=== PATIENT | male | born 1960 | race Caucasian/White ===

== ENCOUNTER 2017-10-12 12:04 | Inpatient (IN) | payer BC ==
[~2017-10-12] VITALS: Ht 180.3 cm; Wt 102.3 kg
[~2017-10-12 12:04] MED LIST: BACITRACIN 50,000 UNIT ONE; THROMBIN 5,000 UNIT VIAL TP ONE
[2017-10-12] MEDS ORDERED: HYDR-879 PO (13:28)
[2017-10-12] MEDS ORDERED: ASPI-496 PO (13:28)
[2017-10-12] MEDS ORDERED: TRAZ-136 PO (13:28)
[2017-10-12] MEDS ORDERED: DOCU-131 PO (13:28)
[2017-10-12] MEDS ORDERED: ATOR40TA78 PO (13:28)
[2017-10-12] MEDS ORDERED: SILD50TA PO (13:28)
[2017-10-12] MEDS ORDERED: LACTATED RINGERS 1,000 ML IV SCH (14:01)
[2017-10-12] MEDS ORDERED: SCOPOLAMINE PATCH, 1.5MG PATCH.TD72 TD ONE (14:30)
[2017-10-12] MEDS ORDERED: GABAPENTIN 300 MG CAPSULE PO ONE (14:30)
[2017-10-12] MEDS ORDERED: ACETAMINOPHEN 500 MG TABLET PO ONE (14:30)
[2017-10-12] MEDS ORDERED: HEPARIN 1,000 UNITS/ML, 30ML ONE (15:33)
[2017-10-12] MEDS ORDERED: FENTANYL PF 250 MCG/5ML ONE (15:45)
[2017-10-12] MEDS ORDERED: MIDAZOLAM 1 MG/ML, 2ML ONE (15:45)
[2017-10-12] MEDS ORDERED: SUCCINYLCHOLINE 20 MG/ML, 10ML ONE (15:54)
[2017-10-12] MEDS ORDERED: ROCURONIUM 10 MG/ML,10ML ONE (15:54)
[2017-10-12] MEDS ORDERED: ONDANSETRON 2MG/ML, 2ML ONE (15:54)
[2017-10-12] MEDS ORDERED: NEOSTIGMINE 1 MG/ML, 10ML ONE (15:54)
[2017-10-12] MEDS ORDERED: PROPOFOL 10 MG/ML, 20ML ONE (15:54)
[2017-10-12] MEDS ORDERED: GLYCOPYRROLATE 0.2MG/1ML, 5ML ONE (15:54)
[2017-10-12] MEDS ORDERED: CEFAZOLIN 1,000 MG ONE (15:54)
[2017-10-12] MEDS ORDERED: DEXAMETHASONE 4 MG/ML, 1ML ONE (15:54)
[2017-10-12] MEDS ORDERED: MEPERIDINE/PF 25MG/0.5ML IVPush PRN (17:00)
[2017-10-12] MEDS ORDERED: PROMETHAZINE 25 MG/ML, 1ML IV PRN (17:00)
[2017-10-12] MEDS ORDERED: KETOROLAC 30 MG/1 ML IV PRN (17:00)
[2017-10-12] MEDS ORDERED: METOCLOPRAMIDE 5 MG/ML, 2ML IV PRN (17:00)
[2017-10-12] MEDS ORDERED: LABETALOL 5MG/ML, 20ML IV PRN (17:00)
[2017-10-12] MEDS ORDERED: OXYcodone 5 MG/5 ML ORAL.SOL UDC PO PRN (17:00)
[2017-10-12] MEDS ORDERED: ONDANSETRON 2MG/ML, 2ML IVPush PRN (17:00)
[2017-10-12] MEDS ORDERED: ALBUTEROL SULFATE 2.5 MG/3 ML NPPB PRN (17:00)
[2017-10-12] MEDS ORDERED: hydrALAzine 20 MG/ML, 1ML IV PRN (17:00)
[2017-10-12] MEDS ORDERED: MEPERIDINE/PF 25MG/0.5ML ONE (18:25)
[2017-10-12] MEDS ORDERED: CYCLOBENZAPRINE 10 MG TABLET PO PRN (18:30)
[2017-10-12] MEDS ORDERED: HYDROcodone/APAP 5/325 TABLET PO PRN (18:30)
[2017-10-12] MEDS ORDERED: BISACODYL 10 MG SUPP PR PRN (18:30)
[2017-10-12] MEDS ORDERED: PROMETHAZINE 25 MG/ML, 1ML IM PRN (18:30)
[2017-10-12] MEDS ORDERED: DIPHENHYDRAMINE 50 MG/ML, 1ML IVPush PRN (18:30)
[2017-10-12] MEDS ORDERED: OXYcodone/APAP 5/325MG TABLET PO PRN (18:30)
[2017-10-12] MEDS ORDERED: PHARMACY MAY ADJ FOR RENAL FX MC PRN (18:30)
[2017-10-12] MEDS ORDERED: MORPHINE SULFATE 4 MG/ML, 1ML ONE (18:34)
[2017-10-12] MEDS ORDERED: OXYcodone 5 MG/5 ML ORAL.SOL UDC ONE (18:37)
[2017-10-12] MEDS ORDERED: HYDROmorphone 2 MG/ML, 1ML ONE ×2 (18:37→19:32)
[2017-10-12] MEDS ORDERED: CYCLOBENZAPRINE 10 MG TABLET ONE (18:37)
[2017-10-12] MEDS: HYDROmorphone 1 MG/ML, 1ML IV PRN ×4 (18:40→19:13)
[2017-10-12] MEDS: FENTANYL PF 100 MCG/2ML IV PRN ×2 (19:30→19:35)
[2017-10-12] MEDS ORDERED: FENTANYL PF 100 MCG/2ML ONE (19:32)
[2017-10-12 20:15] VITALS: BP 151/90
[2017-10-12] MEDS: SODIUM CHLORIDE FLUSH 10ML SYR IVF SCH (21:00)
[2017-10-12] MEDS: ATORVASTATIN 40 MG TABLET PO SCH (21:16)
[2017-10-12] MEDS: ONDANSETRON 2MG/ML, 2ML IVPush PRN (23:07)
[2017-10-12] MEDS: METHOCARBAMOL 750 MG TABLET PO PRN (23:22)
[2017-10-12] MEDS: morphine SULFATE 10 MG/ML, 1ML IVPush PRN (23:37)
[2017-10-12] MEDS: D5%-0.9% NACL+KCL 20MEQ 1,000 ML IV SCH (23:51)
[2017-10-12] MEDS: TRAZODONE 50MG TABLET PO SCH (23:52)
[2017-10-12 23:57] VITALS: BP 120/75
[2017-10-13] MEDS: CEFAZOLIN PMX 1GM/50ML 50 ML IVPB SCH ×2 (00:15→07:30)
[2017-10-13] MEDS: HYDROcodone/APAP 10/325 MG TABLET PO PRN ×5 (01:23→20:44)
[2017-10-13] MEDS: morphine SULFATE 10 MG/ML, 1ML IVPush PRN ×5 (02:43→22:12)
[2017-10-13 04:19] VITALS: BP 102/66
[2017-10-13] MEDS: ENOXAPARIN 40 MG/0.4 ML SQ SCH (05:36)
[2017-10-13 05:48] LABS: BASOPHILS # (AUTO) 0.02 x10^3/uL (0-0.1); BASOPHILS % (AUTO) 0 % (0-1); EOSINOPHILS # (AUTO) 0.01 x10^3/uL (0-0.4); EOSINOPHILS % (AUTO) 0 % (1-7); LYMPHOCYTES # (AUTO) 0.93 x10^3/uL (1-3.4); LYMPHOCYTES % (AUTO) 10 % (22-44); MD NO; MEAN CORPUSCULAR HEMOGLOBIN 30.6 pg (27.5-34.5); MEAN CORPUSCULAR HGB CONC 34.8 g/dL (33.2-36.2); MEAN CORPUSCULAR VOLUME 87.9 fL (81-97); MEAN PLATELET VOLUME 7.7 fL (7.4-10.4); MONOCYTES # (AUTO) 0.57 x10^3/uL (0.2-0.8); MONOCYTES % (AUTO) 6 % (2-9); NEUTROPHILS # (AUTO) 8.04 x10^3/uL (1.8-6.8); NEUTROPHILS % (AUTO) 84 % (42-75); PLATELET COUNT 223 x10^3/uL (130-400); RED BLOOD COUNT 4.56 x10^6/uL (4.38-5.82); RED CELL DISTRIBUTION WIDTH 12.8 % (9.4-14.8)
[2017-10-13 05:51] LABS: ANION GAP 6 mmol/L (5-15); CHLORIDE 104 mmol/L (98-107); CREATININE 1.12 mg/dL (0.7-1.3)
[2017-10-13] MEDS: METHOCARBAMOL 750 MG TABLET PO PRN (07:10)
[2017-10-13 07:25] VITALS: BP 109/74
[2017-10-13] MEDS: D5%-0.9% NACL+KCL 20MEQ 1,000 ML IV SCH ×2 (08:10→16:41)
[2017-10-13] MEDS: SODIUM CHLORIDE FLUSH 10ML SYR IVF SCH ×2 (08:58→20:18)
[2017-10-13] MEDS: HYDROmorphone 2MG TABLET PO PRN ×4 (10:11→23:20)
[2017-10-13] MEDS: SENNA/DOCUSATE TABLET PO PRN (12:55)
[2017-10-13 13:36] VITALS: BP 125/78
[2017-10-13 20:03] VITALS: BP 132/78
[2017-10-13] MEDS: ATORVASTATIN 40 MG TABLET PO SCH (20:18)
[2017-10-13] MEDS: ONDANSETRON 2MG/ML, 2ML IVPush PRN (20:18)
[2017-10-13] MEDS: TRAZODONE 50MG TABLET PO SCH (22:12)
[2017-10-14] MEDS: HYDROcodone/APAP 10/325 MG TABLET PO PRN ×6 (00:36→20:32)
[2017-10-14] MEDS: D5%-0.9% NACL+KCL 20MEQ 1,000 ML IV SCH ×3 (00:37→20:00)
[2017-10-14 01:39] VITALS: BP 145/67
[2017-10-14] MEDS: morphine SULFATE 10 MG/ML, 1ML IVPush PRN ×4 (02:22→17:10)
[2017-10-14] MEDS: HYDROmorphone 2MG TABLET PO PRN ×6 (03:21→23:21)
[2017-10-14 05:47] LABS: ANION GAP 6 mmol/L (5-15); CALCIUM 7.9 mg/dL (8.5-10.1); CHLORIDE 102 mmol/L (98-107); CREATININE 1.04 mg/dL (0.7-1.3)
[2017-10-14 05:49] LABS: BASOPHILS % (AUTO) 0 % (0-1); EOSINOPHILS # (AUTO) 0.01 x10^3/uL (0-0.4); EOSINOPHILS % (AUTO) 0 % (1-7); LYMPHOCYTES # (AUTO) 0.65 x10^3/uL (1-3.4); LYMPHOCYTES % (AUTO) 7 % (22-44); MD NO; MEAN CORPUSCULAR HEMOGLOBIN 30.5 pg (27.5-34.5); MEAN CORPUSCULAR HGB CONC 35.2 g/dL (33.2-36.2); MEAN CORPUSCULAR VOLUME 86.8 fL (81-97); MEAN PLATELET VOLUME 7.7 fL (7.4-10.4); MONOCYTES # (AUTO) 0.77 x10^3/uL (0.2-0.8); MONOCYTES % (AUTO) 9 % (2-9); NEUTROPHILS # (AUTO) 7.47 x10^3/uL (1.8-6.8); NEUTROPHILS % (AUTO) 84 % (42-75); PLATELET COUNT 183 x10^3/uL (130-400); RED BLOOD COUNT 4.11 x10^6/uL (4.38-5.82); RED CELL DISTRIBUTION WIDTH 12.7 % (9.4-14.8)
[2017-10-14] MEDS: ENOXAPARIN 40 MG/0.4 ML SQ SCH (06:02)
[2017-10-14 06:50] VITALS: BP 111/71
[2017-10-14] MEDS: SODIUM CHLORIDE FLUSH 10ML SYR IVF SCH ×2 (08:37→20:32)
[2017-10-14] MEDS: GABAPENTIN 300 MG CAPSULE PO SCH ×3 (08:37→20:32)
[2017-10-14] MEDS: METOCLOPRAMIDE 10MG TABLET PO SCH ×3 (08:37→20:32)
[2017-10-14 13:14] VITALS: BP 134/79
[2017-10-14 19:43] VITALS: BP 142/63
[2017-10-14] MEDS: ATORVASTATIN 40 MG TABLET PO SCH (20:32)
[2017-10-14] MEDS: TRAZODONE 50MG TABLET PO SCH (20:32)
[2017-10-15] MEDS: HYDROcodone/APAP 10/325 MG TABLET PO PRN ×5 (00:34→19:30)
[2017-10-15 01:14] VITALS: BP 149/65
[2017-10-15] MEDS: D5%-0.9% NACL+KCL 20MEQ 1,000 ML IV SCH ×3 (03:35→19:04)
[2017-10-15] MEDS: HYDROmorphone 2MG TABLET PO PRN ×5 (03:35→21:01)
[2017-10-15] MEDS: ENOXAPARIN 40 MG/0.4 ML SQ SCH (05:05)
[2017-10-15 05:20] LABS: BASOPHILS # (AUTO) 0.01 x10^3/uL (0-0.1); BASOPHILS % (AUTO) 0 % (0-1); EOSINOPHILS # (AUTO) 0.02 x10^3/uL (0-0.4); EOSINOPHILS % (AUTO) 0 % (1-7); LYMPHOCYTES # (AUTO) 1.08 x10^3/uL (1-3.4); LYMPHOCYTES % (AUTO) 12 % (22-44); MD NO; MEAN CORPUSCULAR HEMOGLOBIN 30.2 pg (27.5-34.5); MEAN CORPUSCULAR HGB CONC 34.1 g/dL (33.2-36.2); MEAN CORPUSCULAR VOLUME 88.6 fL (81-97); MEAN PLATELET VOLUME 8.1 fL (7.4-10.4); MONOCYTES # (AUTO) 1.19 x10^3/uL (0.2-0.8); MONOCYTES % (AUTO) 13 % (2-9); NEUTROPHILS # (AUTO) 6.96 x10^3/uL (1.8-6.8); NEUTROPHILS % (AUTO) 75 % (42-75); PLATELET COUNT 196 x10^3/uL (130-400); RED BLOOD COUNT 4.01 x10^6/uL (4.38-5.82); RED CELL DISTRIBUTION WIDTH 12.8 % (9.4-14.8)
[2017-10-15] MEDS: METOCLOPRAMIDE 10MG TABLET PO SCH ×3 (07:58→21:01)
[2017-10-15] MEDS: GABAPENTIN 300 MG CAPSULE PO SCH ×3 (07:58→21:01)
[2017-10-15] MEDS: SENNA/DOCUSATE TABLET PO PRN (07:59)
[2017-10-15 08:07] VITALS: BP 130/78
[2017-10-15] MEDS: SODIUM CHLORIDE FLUSH 10ML SYR IVF SCH ×2 (09:36→21:01)
[2017-10-15] MEDS ORDERED: METHOCARBAMOL 750 MG TABLET PO PRN (10:00)
[2017-10-15] MEDS ORDERED: BISACODYL 5 MG EC TABLET PO PRN (10:00)
[2017-10-15] MEDS: FAMOTIDINE 20 MG TABLET PO SCH ×2 (10:35→21:01)
[2017-10-15] MEDS: morphine SULFATE 10 MG/ML, 1ML IVPush PRN ×2 (10:36→22:45)
[2017-10-15] MEDS: DEXAMETHASONE 4 MG/ML, 1ML IVPush SCH ×3 (10:37→21:57)
[2017-10-15 14:48] VITALS: BP 116/76
[2017-10-15] MEDS ORDERED: MAGNESIUM CITRATE 300ML ORAL SOL ONE (16:45)
[2017-10-15] MEDS ORDERED: MAGNESIUM CITRATE 300ML ORAL SOL PO ONE (17:00)
[2017-10-15 18:30] VITALS: BP 109/77
[2017-10-15] MEDS: ATORVASTATIN 40 MG TABLET PO SCH (21:01)
[2017-10-15] MEDS: TRAZODONE 50MG TABLET PO SCH (21:57)
[2017-10-15] MEDS: METHOCARBAMOL 750 MG TABLET PO PRN (22:45)
[2017-10-16 02:44] VITALS: BP 131/82
[2017-10-16] MEDS: D5%-0.9% NACL+KCL 20MEQ 1,000 ML IV SCH ×3 (04:00→17:00)
[2017-10-16] MEDS: DEXAMETHASONE 4 MG/ML, 1ML IVPush SCH ×4 (04:43→22:26)
[2017-10-16] MEDS: HYDROcodone/APAP 10/325 MG TABLET PO PRN (04:44)
[2017-10-16 04:45] LABS: BASOPHILS # (AUTO) 0.01 x10^3/uL (0-0.1); BASOPHILS % (AUTO) 0 % (0-1); EOSINOPHILS % (AUTO) 0 % (1-7); LYMPHOCYTES # (AUTO) 0.66 x10^3/uL (1-3.4); LYMPHOCYTES % (AUTO) 8 % (22-44); MD NO; MEAN CORPUSCULAR HEMOGLOBIN 30.2 pg (27.5-34.5); MEAN CORPUSCULAR HGB CONC 34.3 g/dL (33.2-36.2); MEAN PLATELET VOLUME 7.6 fL (7.4-10.4); MONOCYTES # (AUTO) 0.42 x10^3/uL (0.2-0.8); MONOCYTES % (AUTO) 5 % (2-9); NEUTROPHILS # (AUTO) 7.52 x10^3/uL (1.8-6.8); NEUTROPHILS % (AUTO) 87 % (42-75); PLATELET COUNT 189 x10^3/uL (130-400); RED BLOOD COUNT 3.77 x10^6/uL (4.38-5.82); RED CELL DISTRIBUTION WIDTH 12.6 % (9.4-14.8)
[2017-10-16 07:09] VITALS: BP 113/75
[2017-10-16] MEDS: GABAPENTIN 300 MG CAPSULE PO SCH ×3 (08:40→20:45)
[2017-10-16] MEDS: METOCLOPRAMIDE 10MG TABLET PO SCH (08:40)
[2017-10-16] MEDS: HYDROmorphone 2MG TABLET PO PRN (08:40)
[2017-10-16] MEDS: SODIUM CHLORIDE FLUSH 10ML SYR IVF SCH (08:41)
[2017-10-16] MEDS: FAMOTIDINE 20 MG TABLET PO SCH ×2 (08:41→20:46)
[2017-10-16] MEDS ORDERED: THROMBIN 5,000 UNIT VIAL TP ONE ×2 (09:42→10:53)
[2017-10-16] MEDS ORDERED: BUPIVACAINE/PF 0.5% ONE (09:42)
[2017-10-16] MEDS ORDERED: EPINEPHRINE 1 MG/ML, 1ML ONE (09:42)
[2017-10-16] MEDS ORDERED: BUPIVACAINE 0.25% ONE (09:42)
[2017-10-16] MEDS ORDERED: BACITRACIN 50,000 UNIT ONE (09:43)
[2017-10-16] MEDS ORDERED: FENTANYL PF 100 MCG/2ML ONE ×4 (10:01→13:03)
[2017-10-16] MEDS ORDERED: PROPOFOL 10 MG/ML, 20ML ONE ×3 (10:01→11:41)
[2017-10-16] MEDS ORDERED: MIDAZOLAM 1 MG/ML, 2ML ONE (10:02)
[2017-10-16] MEDS ORDERED: FENTANYL PF 100 MCG/2ML IV PRN (11:30)
[2017-10-16] MEDS ORDERED: ONDANSETRON 2MG/ML, 2ML IVPush PRN ×2 (11:30→16:00)
[2017-10-16] MEDS ORDERED: LABETALOL 5MG/ML, 20ML IV PRN (11:30)
[2017-10-16] MEDS ORDERED: OXYcodone 5 MG/5 ML ORAL.SOL UDC PO PRN (11:30)
[2017-10-16] MEDS ORDERED: MIDAZOLAM 1 MG/ML, 2ML IV PRN (11:30)
[2017-10-16] MEDS ORDERED: ONDANSETRON 2MG/ML, 2ML ONE (11:41)
[2017-10-16] MEDS ORDERED: DEXAMETHASONE 4 MG/ML, 1ML ONE (11:41)
[2017-10-16] MEDS ORDERED: LIDOCAINE GEL 2%, 5ML ONE (11:41)
[2017-10-16] MEDS ORDERED: CEFAZOLIN 1,000 MG ONE ×2 (11:41)
[2017-10-16] MEDS ORDERED: SUCCINYLCHOLINE 20 MG/ML, 10ML ONE (11:41)
[2017-10-16] MEDS ORDERED: METOCLOPRAMIDE 5 MG/ML, 2ML ONE (11:41)
[2017-10-16] MEDS ORDERED: LIDOCAINE-MPF 2% ,5ML ONE (11:41)
[2017-10-16] MEDS ORDERED: EPHEDRINE 50 MG/ML, 1ML ONE (11:42)
[2017-10-16] MEDS ORDERED: BUPIVACAINE LIPOSOME/PF 20ML INFIL ONE (12:25)
[2017-10-16] MEDS ORDERED: FENTANYL PF 250 MCG/5ML ONE (13:07)
[2017-10-16] MEDS ORDERED: OXYcodone 5 MG/5 ML ORAL.SOL UDC ONE (14:21)
[2017-10-16] MEDS ORDERED: HYDROmorphone 2 MG/ML, 1ML ONE (14:21)
[2017-10-16] MEDS ORDERED: MEPERIDINE/PF 25MG/0.5ML ONE ×2 (14:24→14:37)
[2017-10-16] MEDS: MEPERIDINE/PF 25MG/0.5ML IVPush PRN ×2 (14:26→14:38)
[2017-10-16] MEDS: HYDROmorphone 1 MG/ML, 1ML IV PRN ×2 (14:28→14:49)
[2017-10-16] MEDS ORDERED: METHOCARBAMOL 1,000 MG in DEXTROSE 5% 100 ML IV ONE (14:30)
[2017-10-16 15:24] VITALS: BP 135/82
[2017-10-16] MEDS ORDERED: ACETAMINOPHEN 325 MG TABLET PO PRN (16:00)
[2017-10-16] MEDS ORDERED: DIPHENHYDRAMINE 50 MG/ML, 1ML IVPush PRN (16:00)
[2017-10-16] MEDS ORDERED: ACETAMINOPHEN 650 MG SUPP PR PRN (16:00)
[2017-10-16] MEDS ORDERED: METOCLOPRAMIDE 10MG TABLET PO PRN (16:00)
[2017-10-16] MEDS: CEFAZOLIN PMX 1GM/50ML 50 ML IVPB SCH (18:28)
[2017-10-16 19:16] VITALS: BP 105/63
[2017-10-16] MEDS: OXYcodone IR 5MG TABLET PO PRN (20:45)
[2017-10-16] MEDS: DOCUSATE 100 MG CAPSULE PO SCH (20:45)
[2017-10-16] MEDS: ATORVASTATIN 40 MG TABLET PO SCH (20:45)
[2017-10-16] MEDS: TRAZODONE 50MG TABLET PO PRN (20:51)
[2017-10-16] MEDS: METHOCARBAMOL 1,000 MG in DEXTROSE 5% 100 ML IV SCH (22:26)
[2017-10-16] MEDS: morphine SULFATE 10 MG/ML, 1ML IVPush PRN (23:15)
[2017-10-17 00:13] VITALS: BP 125/82
[2017-10-17] MEDS: D5%-0.9% NACL+KCL 20MEQ 1,000 ML IV SCH ×3 (01:49→22:00)
[2017-10-17] MEDS: CEFAZOLIN PMX 1GM/50ML 50 ML IVPB SCH (01:56)
[2017-10-17] MEDS: OXYcodone IR 5MG TABLET PO PRN (03:18)
[2017-10-17] MEDS: DEXAMETHASONE 4 MG/ML, 1ML IVPush SCH (03:18)
[2017-10-17] MEDS: HYDROcodone/APAP 10/325 MG TABLET PO PRN ×5 (04:21→20:53)
[2017-10-17 04:25] VITALS: BP 133/91
[2017-10-17] MEDS: GABAPENTIN 300 MG CAPSULE PO SCH ×4 (05:04→20:54)
[2017-10-17] MEDS: morphine SULFATE 10 MG/ML, 1ML IVPush PRN (05:04)
[2017-10-17 05:16] LABS: BASOPHILS % (AUTO) 0 % (0-1); EOSINOPHILS % (AUTO) 0 % (1-7); LYMPHOCYTES # (AUTO) 0.69 x10^3/uL (1-3.4); LYMPHOCYTES % (AUTO) 7 % (22-44); MD NO; MEAN CORPUSCULAR HEMOGLOBIN 30.2 pg (27.5-34.5); MEAN CORPUSCULAR HGB CONC 34.2 g/dL (33.2-36.2); MEAN CORPUSCULAR VOLUME 88.3 fL (81-97); MEAN PLATELET VOLUME 7.6 fL (7.4-10.4); MONOCYTES # (AUTO) 0.63 x10^3/uL (0.2-0.8); MONOCYTES % (AUTO) 7 % (2-9); NEUTROPHILS # (AUTO) 8.41 x10^3/uL (1.8-6.8); NEUTROPHILS % (AUTO) 87 % (42-75); PLATELET COUNT 238 x10^3/uL (130-400); RED BLOOD COUNT 3.39 x10^6/uL (4.38-5.82); RED CELL DISTRIBUTION WIDTH 12.7 % (9.4-14.8)
[2017-10-17 05:24] LABS: ANION GAP 6 mmol/L (5-15); CALCIUM 8.2 mg/dL (8.5-10.1); CHLORIDE 102 mmol/L (98-107); CREATININE 0.91 mg/dL (0.7-1.3)
[2017-10-17] MEDS ORDERED: ENOXAPARIN 40 MG/0.4 ML SQ SCH (06:00)
[2017-10-17] MEDS: METHOCARBAMOL 1,000 MG in DEXTROSE 5% 100 ML IV SCH (06:33)
[2017-10-17 07:18] VITALS: BP 111/68
[2017-10-17] MEDS: DOXYCYCLINE 100MG TABLET PO SCH ×2 (08:14→20:54)
[2017-10-17] MEDS: DOCUSATE 100 MG CAPSULE PO SCH ×2 (08:14→20:54)
[2017-10-17] MEDS: FAMOTIDINE 20 MG TABLET PO SCH ×2 (08:15→20:54)
[2017-10-17 13:13] VITALS: BP 117/70
[2017-10-17] MEDS: METHOCARBAMOL 750 MG TABLET PO SCH (15:19)
[2017-10-17] MEDS ORDERED: CEFAZOLIN PMX 1GM/50ML 0 ML ONE (16:51)
[2017-10-17 19:27] VITALS: BP 108/70
[2017-10-17] MEDS: ATORVASTATIN 40 MG TABLET PO SCH (20:54)
[2017-10-17] MEDS: ENOXAPARIN 30 MG/0.3 ML SQ SCH (20:54)
[2017-10-17] MEDS ORDERED: MAGNESIUM CITRATE 300ML ORAL SOL PO PRN (21:00)
[2017-10-18] MEDS: TRAZODONE 50MG TABLET PO PRN ×2 (00:28→21:17)
[2017-10-18] MEDS: METHOCARBAMOL 750 MG TABLET PO SCH ×5 (00:28→21:17)
[2017-10-18] MEDS: HYDROcodone/APAP 10/325 MG TABLET PO PRN ×4 (00:55→19:54)
[2017-10-18 01:13] VITALS: BP 129/85
[2017-10-18] MEDS: GABAPENTIN 300 MG CAPSULE PO SCH ×4 (05:11→21:17)
[2017-10-18 05:57] LABS: CHLORIDE 103 mmol/L (98-107)
[2017-10-18 05:59] LABS: BASOPHILS # (AUTO) 0.01 x10^3/uL (0-0.1); BASOPHILS % (AUTO) 0 % (0-1); EOSINOPHILS % (AUTO) 0 % (1-7); LYMPHOCYTES # (AUTO) 1.45 x10^3/uL (1-3.4); LYMPHOCYTES % (AUTO) 21 % (22-44); MD NO; MEAN CORPUSCULAR HEMOGLOBIN 30.5 pg (27.5-34.5); MEAN CORPUSCULAR HGB CONC 34.6 g/dL (33.2-36.2); MEAN CORPUSCULAR VOLUME 88.2 fL (81-97); MEAN PLATELET VOLUME 7.5 fL (7.4-10.4); MONOCYTES # (AUTO) 0.78 x10^3/uL (0.2-0.8); MONOCYTES % (AUTO) 11 % (2-9); NEUTROPHILS # (AUTO) 4.82 x10^3/uL (1.8-6.8); NEUTROPHILS % (AUTO) 68 % (42-75); PLATELET COUNT 251 x10^3/uL (130-400); RED BLOOD COUNT 3.27 x10^6/uL (4.38-5.82); RED CELL DISTRIBUTION WIDTH 12.6 % (9.4-14.8)
[2017-10-18 06:01] LABS: ANION GAP 6 mmol/L (5-15); CALCIUM 8.1 mg/dL (8.5-10.1); CREATININE 0.87 mg/dL (0.7-1.3)
[2017-10-18 08:00] VITALS: BP 122/74
[2017-10-18] MEDS: D5%-0.9% NACL+KCL 20MEQ 1,000 ML IV SCH ×2 (08:00→16:59)
[2017-10-18] MEDS: DOCUSATE 100 MG CAPSULE PO SCH ×2 (09:00→21:17)
[2017-10-18] MEDS: FAMOTIDINE 20 MG TABLET PO SCH ×2 (09:00→21:17)
[2017-10-18] MEDS: DOXYCYCLINE 100MG TABLET PO SCH ×2 (09:23→21:17)
[2017-10-18] MEDS: ENOXAPARIN 30 MG/0.3 ML SQ SCH ×2 (09:23→21:18)
[2017-10-18 13:05] VITALS: BP 125/67
[2017-10-18] MEDS ORDERED: PROPOFOL 10 MG/ML, 20ML ONE (17:23)
[2017-10-18] MEDS ORDERED: hydrALAzine 20 MG/ML, 1ML IV PRN (18:30)
[2017-10-18] MEDS ORDERED: PROMETHAZINE 25 MG/ML, 1ML IV PRN (18:30)
[2017-10-18] MEDS ORDERED: PROMETHAZINE 12.5 MG SUPP PR PRN (18:30)
[2017-10-18] MEDS ORDERED: LABETALOL 5MG/ML, 20ML IV PRN (18:30)
[2017-10-18] MEDS ORDERED: ONDANSETRON ODT 8 MG PO PRN (18:30)
[2017-10-18] MEDS ORDERED: HYDROmorphone 1 MG/ML, 1ML IV PRN (18:30)
[2017-10-18] MEDS ORDERED: PROMETHAZINE 25 MG SUPP PR PRN (18:30)
[2017-10-18] MEDS ORDERED: MORPHINE SULFATE 4 MG/ML, 1ML IVPush PRN (18:30)
[2017-10-18] MEDS ORDERED: ONDANSETRON 2MG/ML, 2ML IV PRN (18:30)
[2017-10-18] MEDS ORDERED: FENTANYL PF 100 MCG/2ML IV PRN (18:30)
[2017-10-18] MEDS ORDERED: OXYcodone 5 MG/5 ML ORAL.SOL UDC PO PRN (18:30)
[2017-10-18] MEDS ORDERED: MEPERIDINE/PF 25MG/0.5ML IVPush PRN (18:30)
[2017-10-18 18:35] VITALS: BP 110/70
[2017-10-18] MEDS: ATORVASTATIN 40 MG TABLET PO SCH (21:17)
[2017-10-18] MEDS: OXYcodone IR 5MG TABLET PO PRN (23:34)
[2017-10-19] MEDS: D5%-0.9% NACL+KCL 20MEQ 1,000 ML IV SCH (00:36)
[2017-10-19 02:45] VITALS: BP 123/79
[2017-10-19] MEDS: HYDROcodone/APAP 10/325 MG TABLET PO PRN (02:46)
[2017-10-19] MEDS: OXYcodone IR 5MG TABLET PO PRN (05:15)
[2017-10-19 05:56] LABS: BASOPHILS # (AUTO) 0.04 x10^3/uL (0-0.1); BASOPHILS % (AUTO) 1 % (0-1); EOSINOPHILS # (AUTO) 0.07 x10^3/uL (0-0.4); EOSINOPHILS % (AUTO) 1 % (1-7); LYMPHOCYTES # (AUTO) 1.69 x10^3/uL (1-3.4); LYMPHOCYTES % (AUTO) 22 % (22-44); MD NO; MEAN CORPUSCULAR HEMOGLOBIN 30.4 pg (27.5-34.5); MEAN CORPUSCULAR VOLUME 86.9 fL (81-97); MEAN PLATELET VOLUME 6.7 fL (7.4-10.4); MONOCYTES % (AUTO) 9 % (2-9); NEUTROPHILS # (AUTO) 5.09 x10^3/uL (1.8-6.8); NEUTROPHILS % (AUTO) 67 % (42-75); PLATELET COUNT 350 x10^3/uL (130-400); RED BLOOD COUNT 3.71 x10^6/uL (4.38-5.82); RED CELL DISTRIBUTION WIDTH 12.5 % (9.4-14.8)
[2017-10-19] MEDS: METHOCARBAMOL 750 MG TABLET PO SCH (06:02)
[2017-10-19] MEDS: GABAPENTIN 300 MG CAPSULE PO SCH (06:02)
[2017-10-19 07:39] VITALS: BP 122/81
[2017-10-19] MEDS: FAMOTIDINE 20 MG TABLET PO SCH (08:45)
[2017-10-19] MEDS: ENOXAPARIN 30 MG/0.3 ML SQ SCH (08:45)
[2017-10-19] MEDS: DOCUSATE 100 MG CAPSULE PO SCH (08:45)
[2017-10-19] MEDS: DOXYCYCLINE 100MG TABLET PO SCH (08:46)
[2017-10-19] MEDS ORDERED: METH750T87 PO (09:41)
[2017-10-19] MEDS ORDERED: MORP-52 PO (09:41)
[2017-10-19] MEDS ORDERED: HYDR-3307 PO (09:41)
[2017-10-19] MEDS ORDERED: DOXY100T PO (09:44)
[2017-10-19] MEDS ORDERED: ENOX40SY4 SQ (09:44)
[2017-10-19] MEDS ORDERED: GABA300C PO (09:44)
== END 2017-10-19 10:33 | disposition home or self-care (01) | DRG 455 ==
LOC: ORIP 12:04 → 4NOR 20:15 → DCLOUNGE 10-19 10:12
PROVIDERS: ADMIT Neurological Surgery; ATTEND Neurological Surgery
PROC: 0SG0071 Fusion of Lumbar Vertebral Joint with Autologous Tissue Substitute, Posterior Approach, Posterior Column, Open Approach (ICD-10-PCS; 2017-10-12)
PROC: 0SB40ZZ Excision of Lumbosacral Disc, Open Approach (ICD-10-PCS; 2017-10-12)
PROC: 0SB20ZZ Excision of Lumbar Vertebral Disc, Open Approach (ICD-10-PCS; 2017-10-12)
PROC: 4A11X4G Monitoring of Peripheral Nervous Electrical Activity, Intraoperative, External Approach (ICD-10-PCS; 2017-10-12)
PROC: 0SG00A0 Fusion of Lumbar Vertebral Joint with Interbody Fusion Device, Anterior Approach, Anterior Column, Open Approach (ICD-10-PCS; principal; 2017-10-12 14:00)
PROC: 0SG30A0 Fusion of Lumbosacral Joint with Interbody Fusion Device, Anterior Approach, Anterior Column, Open Approach (ICD-10-PCS; 2017-10-16)
PROC: 01NB0ZZ Release Lumbar Nerve, Open Approach (ICD-10-PCS; 2017-10-16)
PROC: 01NR0ZZ Release Sacral Nerve, Open Approach (ICD-10-PCS; 2017-10-16)
PROC: 0SG3071 Fusion of Lumbosacral Joint with Autologous Tissue Substitute, Posterior Approach, Posterior Column, Open Approach (ICD-10-PCS; 2017-10-16)
DX: M51.17 Intervertebral disc disorders with radiculopathy, lumbosacral region (principal); M48.062 Spinal stenosis, lumbar region with neurogenic claudication; Z86.711 Personal history of pulmonary embolism; Z87.891 Personal history of nicotine dependence; Z72.89 Other problems related to lifestyle; Z82.0 Family history of epilepsy and other diseases of the nervous system; Z82.49 Family history of ischemic heart disease and other diseases of the circulatory system; E66.9 Obesity, unspecified; Z68.31 Body mass index [BMI] 31.0-31.9, adult; G89.4 Chronic pain syndrome; E78.5 Hyperlipidemia, unspecified
CPT/HCPCS: 36415; 72100; 74018; J3490; 72131; 72148; 80048; 85025; 93970; C1713; C9290; G0378; J0171; J0690; J1100; J1170; J1644; J1650; J2175; J2250; J2405; J2704; J2710; J3010; C1751; C1762; J0330; J1200; J2270; J2765; J2800; J3480; J7120

== ENCOUNTER 2017-12-19 11:24 | Day surgery (SDC) | payer BC ==
[~2017-12-19] VITALS: Ht 182.9 cm; Wt 102.4 kg
[~2017-12-19 11:24] MED LIST changes: +ASPI-496 PO; +ATOR40TA78 PO; -BACITRACIN 50,000 UNIT ONE; +DOCU-131 PO; +DOXY100T PO; +ENOX40SY4 SQ; +GABA300C PO; +HYDR-3307 PO; +HYDR-3622 PO; +METH750T87 PO; +MORP-52 PO; +SILD50TA PO; -THROMBIN 5,000 UNIT VIAL TP ONE; +TRAZ-136 PO
[2017-12-19] MEDS ORDERED: LACTATED RINGERS 1,000 ML IV SCH (11:56)
[2017-12-19] MEDS ORDERED: ASPI-496 PO (11:59)
[2017-12-19 12:06] VITALS: BP 128/75
[2017-12-19] MEDS ORDERED: PROPOFOL 10 MG/ML, 20ML ONE (12:41)
[2017-12-19] MEDS ORDERED: DEXAMETHASONE 4 MG/ML, 1ML ONE (12:41)
[2017-12-19] MEDS ORDERED: LIDOCAINE-MPF 2% ,5ML ONE (12:41)
[2017-12-19] MEDS ORDERED: MIDAZOLAM 1 MG/ML, 2ML ONE (12:43)
[2017-12-19] MEDS ORDERED: FENTANYL PF 100 MCG/2ML ONE (12:43)
[2017-12-19] MEDS ORDERED: MIDAZOLAM 1 MG/ML, 2ML IV PRN (15:00)
[2017-12-19] MEDS ORDERED: FENTANYL PF 100 MCG/2ML IV PRN (15:00)
[2017-12-19] MEDS ORDERED: MEPERIDINE/PF 25MG/0.5ML IVPush PRN (15:00)
[2017-12-19] MEDS ORDERED: LABETALOL 5MG/ML, 20ML IV PRN (15:00)
[2017-12-19] MEDS ORDERED: SCOPOLAMINE PATCH, 1.5MG PATCH.TD72 TD PRN (15:00)
[2017-12-19] MEDS ORDERED: ACETAMINOPHEN 325 MG TABLET PO PRN (15:00)
[2017-12-19] MEDS ORDERED: PROMETHAZINE 25 MG SUPP PR PRN (15:00)
[2017-12-19] MEDS ORDERED: HYDROmorphone 1 MG/ML, 1ML IV PRN (15:00)
[2017-12-19] MEDS ORDERED: KETOROLAC 30 MG/1 ML IV PRN (15:00)
[2017-12-19] MEDS ORDERED: OXYcodone 5 MG/5 ML ORAL.SOL UDC PO PRN (15:00)
[2017-12-19] MEDS ORDERED: ONDANSETRON 2MG/ML, 2ML IV PRN (15:00)
[2017-12-19] MEDS ORDERED: ALBUTEROL/IPRATROPIUM 2.5MG/0.5MG, 3 ML NPPB PRN (15:00)
[2017-12-19] MEDS ORDERED: OXYcodone 5 MG/5 ML ORAL.SOL UDC ONE (15:02)
== END 2017-12-19 16:40 | disposition home or self-care (01) ==
LOC: OUT 11:24 → EDSTATUS 13:30 → OUT 16:40
PROVIDERS: ATTEND Physician Assistant Surgical
DX: M48.02 Spinal stenosis, cervical region (principal); M54.5 Low back pain; E66.01 Morbid (severe) obesity due to excess calories
CPT/HCPCS: 70551; 72131; 72141; 72146; 72148; J1100; J2250; J2704; J3010; J3490; J7120

== ENCOUNTER 2018-04-03 08:58 | Day surgery (SDC) | payer BC ==
[~2018-04-03] VITALS: Ht 182.9 cm; Wt 98.9 kg
[~2018-04-03 08:58] MED LIST changes: -TRAZ-136 PO; +TRAZ50TA66 PO
[2018-04-03 09:53] VITALS: BP 118/80
[2018-04-03] MEDS ORDERED: PROPOFOL 10 MG/ML, 20ML ONE (10:56)
[2018-04-03] MEDS ORDERED: LACTATED RINGERS 1,000 ML IV SCH (11:00)
[2018-04-03] MEDS ORDERED: GADOBUTROL 10 MMOL/10 ML PFS ONE (11:58)
[2018-04-03] MEDS ORDERED: MEPERIDINE/PF 25MG/0.5ML IVPush PRN (12:30)
[2018-04-03] MEDS ORDERED: FENTANYL PF 100 MCG/2ML IV PRN (12:30)
[2018-04-03] MEDS ORDERED: HALOPERIDOL 5 MG/ML IV PRN (12:30)
[2018-04-03] MEDS ORDERED: MORPHINE SULFATE 4 MG/ML, 1ML IVPush PRN (12:30)
[2018-04-03] MEDS ORDERED: ACETAMINOPHEN 325 MG TABLET PO PRN (12:30)
[2018-04-03] MEDS ORDERED: ONDANSETRON 2MG/ML, 2ML IV PRN (12:30)
[2018-04-03] MEDS ORDERED: ONDANSETRON ODT 8 MG PO PRN (12:30)
[2018-04-03] MEDS ORDERED: hydrALAzine 20 MG/ML, 1ML IV PRN (12:30)
[2018-04-03] MEDS ORDERED: LABETALOL 5MG/ML, 20ML IV PRN (12:30)
[2018-04-03] MEDS ORDERED: PROMETHAZINE 25 MG/ML, 1ML IV PRN (12:30)
[2018-04-03] MEDS ORDERED: EPHEDRINE 50 MG/ML, 1ML IVPush PRN (12:30)
[2018-04-03] MEDS ORDERED: MIDAZOLAM 1 MG/ML, 2ML IV PRN (12:30)
[2018-04-03] MEDS ORDERED: HYDROmorphone 2 MG/ML, 1ML IVPush PRN (12:30)
[2018-04-03] MEDS ORDERED: ALBUTEROL SULFATE 2.5 MG/3 ML NPPB PRN (12:30)
[2018-04-03] MEDS ORDERED: PROMETHAZINE 12.5 MG SUPP PR PRN (12:30)
[2018-04-03] MEDS ORDERED: OXYcodone 5 MG/5 ML ORAL.SOL UDC PO PRN (12:30)
[2018-04-03] MEDS ORDERED: DIAZEPAM 5 MG/ML, 2ML IVPush PRN (12:30)
== END 2018-04-03 13:30 | disposition home or self-care (01) ==
LOC: OUT 08:58 → EDSTATUS 10:30 → OUT 13:30
PROVIDERS: ATTEND Physician Assistant
DX: M51.36 Other intervertebral disc degeneration, lumbar region (principal); M48.061 Spinal stenosis, lumbar region without neurogenic claudication; G89.29 Other chronic pain; Z79.82 Long term (current) use of aspirin; Z79.899 Other long term (current) drug therapy; Z72.89 Other problems related to lifestyle
CPT/HCPCS: 72158; A9585; J2704

== ENCOUNTER 2018-04-13 12:33 | Day surgery (SDC) | payer BC ==
[~2018-04-13] VITALS: Ht 182.9 cm; Wt 98.6 kg
[~2018-04-13 12:33] MED LIST changes: +METOCLOPRAMIDE 5 MG/ML, 2ML ONE; +ONDANSETRON 2MG/ML, 2ML ONE; +PROPOFOL 10 MG/ML, 20ML ONE
[2018-04-13 13:18] VITALS: BP 115/83
[2018-04-13] MEDS ORDERED: MIDAZOLAM 1 MG/ML, 2ML ONE (14:45)
[2018-04-13] MEDS ORDERED: FENTANYL PF 100 MCG/2ML ONE (14:45)
== END 2018-04-13 16:30 | disposition home or self-care (01) ==
LOC: OUT 12:33 → EDSTATUS 14:15 → OUT 16:30
PROVIDERS: ATTEND Physician Assistant Surgical
DX: I71.4 Abdominal aortic aneurysm, without rupture (principal)
CPT/HCPCS: 72195; J2250; J2405; J2704; J2765; J3010